=== PATIENT | female | born 1945 | race Caucasian/White ===

== ENCOUNTER 2022-03-04 13:17 | Outpatient (CLI) | payer MEDICARE | END 2022-03-04 13:18 | disposition home or self-care (01) | LOC: CSHCT 13:17 | PROVIDERS: ATTEND Surgery | DX: M54.50 Low back pain, unspecified (principal); M79.606 Pain in leg, unspecified; Z98.890 Other specified postprocedural states; M47.816 Spondylosis without myelopathy or radiculopathy, lumbar region | CPT/HCPCS: 72131; 72148 ==